=== PATIENT | male | born 1960 ===

== ENCOUNTER 2016-06-24 13:10 | Outpatient (RCR) | payer MEDICARE, OTHER | END 2016-06-30 | disposition home or self-care (01) | LOC: WCC 13:10 | DX: T86.821 Skin graft (allograft) (autograft) failure (principal); L97.511 Non-pressure chronic ulcer of other part of right foot limited to breakdown of skin; L97.514 Non-pressure chronic ulcer of other part of right foot with necrosis of bone; L02.611 Cutaneous abscess of right foot; I73.9 Peripheral vascular disease, unspecified; E11.9 Type 2 diabetes mellitus without complications; Z94.0 Kidney transplant status; Z94.83 Pancreas transplant status; Z79.82 Long term (current) use of aspirin; Z89.421 Acquired absence of other right toe(s) | CPT/HCPCS: 82962; G0277; G0463 ==

== ENCOUNTER 2016-07-01 13:00 | Outpatient (RCR) | payer MEDICARE, OTHER | END 2016-07-31 | disposition home or self-care (01) | LOC: WCC 13:00 | DX: L97.511 Non-pressure chronic ulcer of other part of right foot limited to breakdown of skin (principal); L97.514 Non-pressure chronic ulcer of other part of right foot with necrosis of bone; L02.611 Cutaneous abscess of right foot; T86.821 Skin graft (allograft) (autograft) failure; E11.9 Type 2 diabetes mellitus without complications; I73.9 Peripheral vascular disease, unspecified; N28.9 Disorder of kidney and ureter, unspecified; Z79.82 Long term (current) use of aspirin; Z94.0 Kidney transplant status; Z94.83 Pancreas transplant status | CPT/HCPCS: 82962; G0277 ==

== ENCOUNTER 2016-08-03 09:46 | Outpatient (RCR) | payer MEDICARE, OTHER ==
--- NOTE | 2016-08-06 21:28 | Progress Note ---
DATE: 08/04/2016 HYPERBARIC OXYGEN FOLLOWUP NOTE SUBJECTIVE: The patient was evaluated in follow up wound care. The patient's wound appears to be improving and responding to hyperbaric oxygen therapy. The patient otherwise doing well and tolerated the therapy thus far. IMPRESSION: Failed flap. RECOMMENDATIONS: Continue with in addition of planned treatment of hyperbaric oxygen therapy for complete wound healing and closure. Rogelio Peoples M.D. DR: RICHARD JOB#: [id number] CC: Hyperbaric Chambers/Wound Care office
== END 2016-08-30 | disposition home or self-care (01) ==
LOC: WCC 09:46
DX: L97.511 Non-pressure chronic ulcer of other part of right foot limited to breakdown of skin (principal); L97.514 Non-pressure chronic ulcer of other part of right foot with necrosis of bone; L02.611 Cutaneous abscess of right foot; T86.821 Skin graft (allograft) (autograft) failure; E11.9 Type 2 diabetes mellitus without complications; I73.9 Peripheral vascular disease, unspecified; N28.9 Disorder of kidney and ureter, unspecified; H40.9 Unspecified glaucoma; Z94.0 Kidney transplant status; Z94.83 Pancreas transplant status; Z79.82 Long term (current) use of aspirin
CPT/HCPCS: 82962; G0277

== ENCOUNTER 2016-08-31 09:46 | Outpatient (RCR) | payer MEDICARE, OTHER | END 2016-09-30 | disposition home or self-care (01) | LOC: WCC 09:46 | DX: L97.511 Non-pressure chronic ulcer of other part of right foot limited to breakdown of skin (principal); L97.514 Non-pressure chronic ulcer of other part of right foot with necrosis of bone; T86.821 Skin graft (allograft) (autograft) failure; L02.611 Cutaneous abscess of right foot; E11.9 Type 2 diabetes mellitus without complications; N28.9 Disorder of kidney and ureter, unspecified; Z79.82 Long term (current) use of aspirin; Z94.0 Kidney transplant status; Z94.83 Pancreas transplant status | CPT/HCPCS: 82962; G0277 ==